=== PATIENT | female | born 1980 | race African-American/Black ===

== ENCOUNTER 2019-03-01 22:49 | Emergency (ER) | payer OTHER ==
[~2019-03-01] VITALS: Ht 165.1 cm; Wt 99.8 kg
--- NOTE | 2019-03-01 22:50 | NUR ---
ED Nurse Note: Patient brought to ED from [facility] via [facility]. Pt c/o sob and 8/10 Left plueral pain x 1 day. Pt stated having a cigarette earlier today started her sob and pain. PT A&Ox4, ambulates without assistance. denies chest pain, Pt spo2 96% on room air, denies fever.
[2019-03-01 22:55] VITALS: BP 146/105
[2019-03-01] MEDS ORDERED: Solu-MEDROL 125mg Inj IVP ONE (23:15)
[2019-03-01] MEDS ORDERED: Albuterol ud Inhalation HHN ONE (23:15)
[2019-03-01] MEDS ORDERED: Ipratropium 0.02% Inh Soln 2.5ml UD HHN ONE (23:15)
[2019-03-02 00:04] LABS: APPEARANCE,URINE CLEAR; BILIRUBIN, URINE NEGATIVE (NEGATIVE); COLOR,URINE YELLOW; GLUCOSE, URINE (UA) NEGATIVE (NEGATIVE); KETONES,URINE NEGATIVE (NEGATIVE); LEUKOCYTE ESTERASE ,URINE 1+ (NEGATIVE); NITRITE,URINE NEGATIVE (NEGATIVE); PH,URINE 5 (4.5-8.0); PROTEIN,URINE NEGATIVE (NEGATIVE); UROBILINOGEN,URINE 1 MG/DL (0.0-1.0)
[2019-03-02 00:07] LABS: BASOPHILS % (AUTO) 1.7 % (0.0-2.0); EOSINOPHILS % (AUTO) 3.7 % (0.0-3.0); HEMATOCRIT 41.4 % (37.0-47.0); HEMOGLOBIN 13.4 G/DL (12.0-16.0); LYMPHOCYTES % (AUTO) 37.4 % (20.0-45.0); MEAN CORPUSCULAR VOLUME 85 FL (80-99); MONOCYTES % (AUTO) 6.9 % (1.0-10.0); NEUTROPHILS % (AUTO) 50.2 % (45.0-75.0); PLATELET COUNT 197 K/UL (150-450); RED CELL DISTRIBUTION WIDTH 14.2 % (11.6-14.8); WHITE BLOOD COUNT 6.3 K/UL (4.8-10.8)
[2019-03-02 00:21] LABS: ANION GAP 5 mmol/L (5-15); BLOOD UREA NITROGEN 23 mg/dL (7-18); CALCIUM 8.2 MG/DL (8.5-10.1); CARBON DIOXIDE 26 MMOL/L (21-32); CHLORIDE 109 MMOL/L (98-107); CREATININE 0.9 MG/DL (0.55-1.30); POTASSIUM 3.6 MMOL/L (3.5-5.1); SODIUM 140 MMOL/L (136-145)
[2019-03-02 00:26] LABS: ALANINE AMINOTRANSFERASE 121 U/L (12-78); ALBUMIN 2.7 G/DL (3.4-5.0); ALBUMIN/GLOBULIN RATIO 0.9 (1.0-2.7); ALKALINE PHOSPHATASE 64 U/L (46-116); ASPARTATE AMINO TRANSFERASE 67 U/L (15-37); BILIRUBIN,TOTAL 0.2 MG/DL (0.2-1.0)
--- NOTE | 2019-03-02 00:39 | Emergency Room Report ---
History of Present Illness General Chief Complaint: Asthma Source: Patient Present Illness HPI Patient brought in by EMS. They gave her a breathing treatment because she was wheezing. She says she has a history of childhood asthma but has never used a nebulizer. She does have an inhaler last month. Her doctor prescribed for her because she was wheezing at that time. She's been ill with this episode of shortness of breath for 2 weeks. Her cough is clear. She has some sharp chest pain on the left-hand side 6 out of 10. She's not taking any medication for the pain. She's used her inhaler with some help. Over last 24-48 hrs. has gotten worse. The breathing treatment by the paramedics is helped her quite a bit. The patient denies nausea or vomiting, diarrhea, dysuria, skin rashes, headache or joint pain. There is no calf pain or swelling. The patient was seen here 3 days ago. She was treated for sexually-transmitted disease exposure. In addition the tox screen is positive for PCP and THC. She admits that she does THC and thinks that the PCP was probably laced in this. She denies the use of cocaine or methamphetamine in the past. The patient is disabled on SSI due to bipolar disorder. She states she's not being treated for this at that moment. She denies suicidal or homicidal ideation Allergies: Coded Allergies: No Known Allergies (Unverified , 03/01/19) Patient History Past Medical History: see triage record Social History: Reports: smoking, drug use Social History Narrative from home Last Menstrual Period: 02/15/19 Now: No : 1 Para: 1 Reviewed Nursing Documentation: PMH: Agreed; PSxH: Agreed Nursing Documentation-PM Past Medical History: No History, Except For Hx Asthma: Yes Review of Systems All Other Systems: negative except mentioned in HPI Physical Exam Vital Signs Date Time Temp Pulse Resp B/P (MAP) Pulse Ox O2 Delivery O2 Flow Rate FiO2 03/01/19 22:44 98.8 78 14 127/72 (90) 96 Room Air 03/01/19 23:19 21 Sp02 EP Interpretation: reviewed, normal General Appearance: well appearing, no apparent distress, GCS 15 Head: normocephalic Eyes: bilateral eye normal inspection, bilateral eye PERRL ENT: moist mucus membranes Neck: supple Respiratory: chest non-tender, wheezing, expiration Cardiovascular #1: regular rate, rhythm Cardiovascular #2: 2+ radial (R) Gastrointestinal: normal inspection, normal bowel sounds, non tender, no mass, non-distended, overweight Genitourinary: no CVA tenderness Musculoskeletal: back normal, gait/station normal, normal range of motion, no calf tenderness, Pilo's Sign negative Neurologic: alert, oriented x3, grossly normal Psychiatric: mood/affect normal Skin: normal inspection, warm/dry Medical Decision Making Diagnostic Impression: Primary Impression: New onset of congestive heart failure Additional Impressions: Bronchospasm PCP (phencyclidine) abuse ER Course Patient presents with wheezing improved with albuterol treatment by EMS. Differential includes asthma exacerbation, pneumonia, bronchospasm amongst others. Evaluation will be with EKG, chest x-ray and labs including magnesium. The patient retreated with slight Medrol, albuterol and Atrovent. She will also receive IV hydration. EKG with occasional PVCs, right axis deviation and P pulmonale with a prolonged QT interval. Chest x-ray with cardiomegaly and some pulmonary vascular congestion no infiltrate. Labs significant for normal white count with eosinophilia. CMP essentially normal. Elevated BNP. Initial troponin negative. Based on the clinical presentation the patient is given Lasix. In addition as she has no prior history of congestive heart failure to be admitted for observation for cardiac workup and echocardiogram. Patient naldo. Presented to Dr. Pollack who accepts. Laboratory Tests Test 03/01/19 23:20 03/02/19 01:07 White Blood Count 6.3 K/UL (4.8-10.8) Red Blood Count 4.90 M/UL (4.20-5.40) Hemoglobin 13.4 G/DL (12.0-16.0) Hematocrit 41.4 % (37.0-47.0) Mean Corpuscular Volume 85 FL (80-99) Mean Corpuscular Hemoglobin 27.4 PG (27.0-31.0) Mean Corpuscular Hemoglobin Concent 32.5 G/DL (32.0-36.0) Red Cell Distribution Width 14.2 % (11.6-14.8) Platelet Count 197 K/UL (150-450) Mean Platelet Volume 8.4 FL (6.5-10.1) Neutrophils (%) (Auto) 50.2 % (45.0-75.0) Lymphocytes (%) (Auto) 37.4 % (20.0-45.0) Monocytes (%) (Auto) 6.9 % (1.0-10.0) Eosinophils (%) (Auto) 3.7 % (0.0-3.0) H Basophils (%) (Auto) 1.7 % (0.0-2.0) Urine Color Yellow Urine Appearance Clear Urine pH 5 (4.5-8.0) Urine Specific [place]good 1.020 (1.005-1.035) Urine Protein Negative (NEGATIVE) Urine Glucose (UA) Negative (NEGATIVE) Urine Ketones Negative (NEGATIVE) Urine Blood 1+ (NEGATIVE) H Urine Nitrite Negative (NEGATIVE) Urine Bilirubin Negative (NEGATIVE) Urine Urobilinogen 1 MG/DL (0.0-1.0) H Urine Leukocyte Esterase 1+ (NEGATIVE) H Urine RBC 0-2 /HPF (0 - 2) Urine WBC 2-4 /HPF (0 - 2) Urine Squamous Epithelial Cells Moderate /LPF (NONE/OCC) H Urine Bacteria Occasional /HPF (NONE) Urine HCG, Qualitative Negative (NEGATIVE) Sodium Level 140 MMOL/L (136-145) Potassium Level 3.6 MMOL/L (3.5-5.1) Chloride Level 109 MMOL/L (98-107) H Carbon Dioxide Level 26 MMOL/L (21-32) Anion Gap 5 mmol/L (5-15) Blood Urea Nitrogen 23 mg/dL (7-18) H Creatinine 0.9 MG/DL (0.55-1.30) Estimate Glomerular Filtration Rate > 60 mL/min (>60) Glucose Level 118 MG/DL (74-106) H Calcium Level 8.2 MG/DL (8.5-10.1) L Magnesium Level 1.9 MG/DL (1.8-2.4) Total Bilirubin 0.2 MG/DL (0.2-1.0) Aspartate Amino Transferase (AST) 67 U/L (15-37) H Alanine Aminotransferase (ALT) 121 U/L (12-78) H Alkaline Phosphatase 64 U/L (46-116) Pro-B-Type Natriuretic Peptide 3178 pg/mL (0-125) H Total Protein 5.7 G/DL (6.4-8.2) L Albumin 2.7 G/DL (3.4-5.0) L Globulin 3.0 g/dL Albumin/Globulin Ratio 0.9 (1.0-2.7) L Urine Opiates Screen Negative (NEGATIVE) Urine Barbiturates Screen Negative (NEGATIVE) Phencyclidine (PCP) Screen Positive (NEGATIVE) H Urine Amphetamines Screen Negative (NEGATIVE) Urine Benzodiazepines Screen Negative (NEGATIVE) Urine Cocaine Screen Negative (NEGATIVE) Urine Marijuana (THC) Screen Negative (NEGATIVE) EKG Diagnostic Results Rate: normal Rhythm: NSR ST Segments: no acute changes - R axis Rhythm Strip Diag. Results EP Interpretation: yes Rhythm: NSR, other - PVC rare, rate 97 Chest X-Ray Diagnostic Results Chest X-Ray Diagnostic Results : Chest X-Ray Ordered: Yes # of Views/Limited/Complete: 1 View Indication: Shortness of Breath EP Interpretation: Yes Interpretation: no effusion, no pneumothorax, other - inc cor and pulm congestion Impression: Other Electronically Signed by: Electronically signed by Laron Santoro MD Last Vital Signs Date Time Temp Pulse Resp B/P (MAP) Pulse Ox O2 Delivery O2 Flow Rate FiO2 03/02/19 02:41 98.4 90 18 125/68 96 Room Air 03/01/19 23:20 21 Status: improved Disposition: ADMITTED INPATIENT Condition: Serious Referrals: OLIVER JACOBSON,REFERRING (PCP) Laron Santoro MD March 02, 2019 00:39
[2019-03-02 01:00] VITALS: BP 141/99
[2019-03-02] MEDS ORDERED: LORazepam Inj 2mg/ml 1ml IV ONE ×2 (01:30→02:45)
--- NOTE | 2019-03-02 02:35 | NUR ---
ED Nurse Note: Registration reports that pt said she had no ID, and gave an incorrect name. Bedside nurse found pt's ID, and presented it to registration - information corrected.
[2019-03-02 02:41] VITALS: BP 125/68
--- NOTE | 2019-03-02 02:43 | NUR ---
ER DISCHARGE NOTE: Patient is cleared to be tranferred to [facility] per ERMD, pt is aox4, on room air, with stable vital signs. pt was given dc and prescription instructions, pt was able to verbalize understanding, pt id band removed, IV site intact and patent. pt is able to ambulate with steady gait but left via gurney. pt took all belongings.
--- NOTE | 2019-03-02 11:35 | Diagnostic Imaging Report ---
Indication: Dyspnea Technique: One view of the chest Comparison: none Findings: The heart is enlarged. There is mild interstitial congestion. There is probably a small left pleural effusion. Impression: Cardiomegaly Mild interstitial congestion This agrees with the preliminary interpretation reported by the emergency room physician in the electronic medical record
--- NOTE | 2019-03-02 16:25 | Cardiology Report ---
APPROVED REPORT EKG Measurement Heart [id number] Sinus rhythm with occasional premature ventricular complexes Rightward axis Pulmonary disease pattern Prolonged QT Abnormal ECG
== END 2019-03-02 02:40 | disposition short-term general hospital (02) ==
LOC: EDBD 22:49 → EMR 23:02
DX: I50.9 Heart failure, unspecified (principal); J98.01 Acute bronchospasm; F16.10 Hallucinogen abuse, uncomplicated; E66.3 Overweight; Z68.36 Body mass index [BMI] 36.0-36.9, adult; F31.9 Bipolar disorder, unspecified; F17.200 Nicotine dependence, unspecified, uncomplicated
CPT/HCPCS: 36415; 71045; 80053; 80307; 81003; 81025; 83735; 83880; 85025; 93005; 94640; 94664; 96361; 96374; 96375; 96376; 99285; J1940; J2930